=== PATIENT | female | born 1965 | race Caucasian/White ===

== ENCOUNTER → 2016-04-19 | Outpatient (CLI) | payer MEDICARE, MEDICAID ==
[~2016-04-19] MED LIST: CRYSELLE-28 TA1 EACH PO; ZOCOR20 MG PO
== END | disposition disaster alternative care site (69) ==
LOC: GBCOE 10:52
DX: Z12.31 Encounter for screening mammogram for malignant neoplasm of breast (principal)
CPT/HCPCS: G0202